=== PATIENT | female | born 1940 | race Caucasian/White ===

== ENCOUNTER 2018-04-02 06:33 | Day surgery (SDC) | payer MEDICARE, BC ==
--- NOTE | 2018-04-02 06:30 | History and Physical - Ferro ---
CHIEF COMPLAINT/HISTORY OF CHIEF COMPLAINT: This patient with a history of moderately severe thoracolumbar rotoscoliosis and an intractable radiculopathy had a spinal cord stimulator trial conducted on 02/17/18 with 75-80% pain control. Due to the failure of all therapy and the success of the trial she presents today for implantation of a permanent system. PAST MEDICAL HISTORY: Hypertension. PAST SURGICAL HISTORY: List to be provided. MEDICATIONS ON ADMISSION: List to be provided. No blood thinners. ALLERGIES: PENICILLIN. FAMILY/PSYCHOSOCIAL HISTORY: Social history - Noncontributory. Family history - Cancer. SYSTEMS REVIEW: The patient is appropriate in no acute distress. The remainder of the systems review is positive for glasses, blood pressure problems , and degenerative arthritis. PHYSICAL EXAMINATION: Height is 5'6", weight is 150. No vital signs. HEENT: Within normal limits. LUNGS: Clear. HEART: Regular rate and rhythm. ABDOMEN: Nontender. MUSCULOSKELETAL: Examination of the musculoskeletal system shows diffuse tenderness lumbar spine. Range of motion produces pain. Throughout the obvious deformity of a scoliosis curvature both kyphotic and scoliotic there is pain across the low back and into both legs somewhat more left than right. Ambulation - No assistive device utilized. NEUROLOGIC: Cranial nerves are intact. IMPRESSION: MODERATELY SEVERE THORACOLUMBAR SCOLIOSIS, ICD-10 CODE M41.25 WITH LUMBAR RADICULOPATHY ICD-10 CODE M54.16 AND M54.17. PLAN: The patient is here for implantation of a permanent spinal cord stimulator after successful trial and the failure of all therapy. All information provided through the fiberglass pipe covering supervisor by way of a CD-ROM, written information, and direct clinical tech interaction has been provided outlining any risks, side effects and complications. We will consider today's procedure outpatient although an overnight stay will be evaluated. JOB NUMBER: [id number] [facility]
[~2018-04-02 06:33] MED LIST: ACETAMINOPHEN 1,000 MG/100 ML BTL IV ONE; CLINDAMYCIN 600MG/50ML PREMIX 600 MG/50 ML BAG IVPB ONE; FAMOTIDINE 20MG TABLET PO ONE; MECLIZINE 25 MG TABLET PO ONE; METOCLOPRAMIDE 10 MG TABLET PO ONE
[2018-04-02] MEDS ORDERED: LIDOCAINE 2% MDV (20MG/ML) 20ML VIAL IV ONE (06:34)
[2018-04-02] MEDS ORDERED: BUPIVACAINE 0.5% W/EPI MPF 30 ML VIAL IVP ONE (06:34)
[2018-04-02] MEDS ORDERED: PROPOFOL 10 MG/ML VIAL IV ONE (06:34)
[2018-04-02] MEDS ORDERED: LIDOCAINE 1% W/EPI 1:200,000 MPF 30ML SQ ONE (06:34)
[2018-04-02] MEDS ORDERED: CLINDAMYCIN (PEDIATRIC DOSING) 150 MG/ML VIAL IVPB ONE (06:34)
[2018-04-02] MEDS ORDERED: MIDAZOLAM HCL 2MG/2ML VIAL IV ONE (06:34)
[2018-04-02] MEDS ORDERED: FENTANYL PF 100MCG/2ML VIAL IV ONE (06:34)
[2018-04-02] MEDS ORDERED: METOCLOPRAMIDE HCL 10 MG/2 ML VIAL IVP PRN (11:40)
[2018-04-02] MEDS ORDERED: OXYCODONE/APAP 10MG-325MG TABLET PO PRN ×2 (11:40)
[2018-04-02] MEDS ORDERED: HYDROCODONE/APAP 7.5/325MG TABLET PO PRN (11:40)
[2018-04-02] MEDS ORDERED: HYDROMORPHONE HCL 2 MG/ML VIAL IM PRN ×2 (11:40)
[2018-04-02] MEDS ORDERED: TEMAZEPAM 15 MG CAPSULE PO PRN ×2 (11:40)
[2018-04-02] MEDS ORDERED: ACETAMINOPHEN 325 MG TAB PO PRN ×2 (11:40)
[2018-04-02] MEDS ORDERED: DIPHENHYDRAMINE HCL 50 MG/ML VIAL IVP PRN ×2 (11:40)
[2018-04-02] MEDS ORDERED: SENNOSIDES/DOCUSATE SODIUM UD CAPSULE PO PRN ×2 (11:40)
[2018-04-02] MEDS ORDERED: DIPHENHYDRAMINE HCL 25 MG CAPSULE PO PRN ×2 (11:40)
[2018-04-02] MEDS ORDERED: METOCLOPRAMIDE 10 MG TABLET PO PRN (11:40)
[2018-04-02] MEDS ORDERED: AL HYDROX/MAG HYDROX 30ML UD PO PRN (11:40)
[2018-04-02] MEDS: HYDROCODONE/APAP 7.5/325MG TABLET PO PRN (13:32)
--- NOTE | 2018-04-02 15:53 | Operative Note - Ferro ---
DATE OF SURGERY: 04/02/18 PREOPERATIVE DIAGNOSES: MODERATELY SEVERE THORACOLUMBAR ROTOSCOLIOSIS, ICD-10 CODE= M41.25 WITH LUMBAR RADICULOPATHY, ICD-10 CODE = M54.16 AND M54.17. OPERATION: 1. FLUOROSCOPICALLY-GUIDED LEFT EPIDURAL ACCESS T11-12, CURVED EPIMED NEEDLE [id number]. PLACEMENT OF SPINAL CORD STIMULATOR LEAD 1, A [employer] IN[employer] 16 WITH 6 ELECTRODES POSITIONED LEFT, T6. 2. FLUOROSCOPICALLY-GUIDED EPIDURAL ACCESS LEFT T12-L1, PLACEMENT OF SPINAL CORD STIMULATOR LEAD 2, A [employer] 16 WITH 6 ELECTRODES POSITIONED RIGHT, T6. 3. COMPLEX PROGRAMMING OF LEAD 1 OVER 20 MINUTES FOLLOWED BY COMPLEX PROGRAMMING OF LEAD 2 OVER 20 MINUTES. 4. INCISION, SUBCUTANEOUS DISSECTION, AND ANCHORING OF LEAD 1 AND LEAD 2 TO SUPRASPINOUS FASCIA USING A [employer] LOCKING ANCHOR. 5. INCISION, SUBCUTANEOUS DISSECTION, AND FORMATION OF SUBCUTANEOUS POUCH AT RIGHT POSTERIOR GLUTEAL MARGIN FOR PLACEMENT OF GENERATOR IDENTIFIED A [employer] WAVEWRITER PROGRAMMABLE RECHARGEABLE. 6. TUNNELING BETWEEN POUCHES. PLACEMENT OF EXTERNAL PORTION OF LEAD 1 AND LEAD 2 INTO GENERATOR POUCH, EACH LEAD INTERFACED TO GENERATOR. 7. PLACEMENT OF GENERATOR POUCH SECURING TO POSTERIOR FASCIA WITH NONABSORBABLE SUTURE, PLACEMENT OF LEADS INTO POUCH. CLOSURE OF BOTH INCISIONS USING STRATAFIX SUTURE, 2-0 FASCIA, 3-0 SUBCUTICULAR. DERMABOND CLOSURE. 8. COMPLEX PROGRAMMING INTERNAL GENERATOR, HOME USE, TWO STIMULATORS, RECOVERY ROOM 20 MINUTES. SURGEON: ALONSO BETANCOURT D.O. ANESTHESIA: LOCAL SEDATION. ANESTHESIA PROVIDER: EDILMA STANTON CRNA. INDICATION: This patient with a history of intractable lumbar radiculopathy. Due to the failure of all therapy and the success of the stimulator trial, she is here for implantation of a permanent system. PROCEDURE: Intravenous line, vital sign monitoring, IV sedation, prepped and draped sterile technique. Under imaging, the C-Arm was rotated to account and adjust for the scoliosis and rotation. The epidural space at T11-12, 12-1 were marked on the left, skin infiltrated then using two separate curved access Epimed needles with [id number], the space was accessed. At 11-12, spinal cord stimulator lead 1, a [employer] Infinion 16 with 6 electrodes positioned left at T6. The epidural access at 12-1, spinal cord stimulator lead 2, also a [employer] Infinion 16 with 6 electrodes, positioned right at T6. Complex programming of lead 1 over 20 minute followed by complex programming of lead 2 over 20 minutes resulting in complete patterns of stimulation across the back and into the legs; patient indicating we were in all of the areas of the pain. She was given the option to implant the system, continue to program, or remove; she opted to implant. Questions were repeated with the same response. She was resedated. The skin above and below both needles were infiltrated, incision made, and subcutaneous dissection was conducted to the supraspinous fascia. Each lead was then anchored to the supraspinous fascia with a [employer] [place]. At the right posterior gluteal margin; a site picked by the patient for the generator, skin infiltrated, incision made, and subcutaneous dissection was conducted to form a pouch of suitable size and depth for the generator identified, [employer] WaveWriter Programmable Rechargeable. A tunneling tool was used to carry the leads into the generator pouch then each lead was interfaced to the generator. Antibiotic irrigation. Bovie for hemostasis. The generator was then placed in the pouch, secured to the posterior fascia. The leads were placed into the pouch and then both incisions were closed using STRATAFIX suture, 2-0 for fascia, 3-0 for skin. A Dermabond closure was then used to approximate the edges of both wounds. She was transported to the Recovery Room stable. No side- effects from the procedure or the sedation. When fully awake and alert, complex programming of the generator performed over 20 minutes re-establishing stimulation and pain control to all of the appropriate areas. She was instructed on the use of the system, provided with information, error messaging , and then prepared for discharge. She will stay overnight for observation and then discharged in the morning. DISCHARGE INSTRUCTIONS: 1. Sites remain clean and dry. No showering or bathing in any way that would disrupt dressings. If it happens, contact the clinic. 2. Standard medications resumed, including Levaquin, the antibiotic, 500 mg once a day for 14 days. 3. The office will contact the patient in the next 24-48 hours to set up a time in 7-10 days for us to check the sites. Until then, her activities should stay low. All other instructions provided, numbers to contact, problems given, she will be seen in 7-10 days. cc: Dr. Rene Julio JOB NUMBER: [id number] MTDD
[2018-04-02] MEDS ORDERED: GABAPENTIN 300 MG CAPSULE PO SCH (16:00)
[2018-04-02] MEDS: RINGERS SOLUTION,LACTATED 1,000 ML IV SCH ×2 (16:43→19:40)
[2018-04-02] MEDS: CLINDAMYCIN 600MG/50ML PREMIX 600 MG/50 ML BAG IVPB SCH (16:43)
[2018-04-02] MEDS: GABAPENTIN 300 MG CAPSULE PO SCH (21:16)
[2018-04-02] MEDS: BACLOFEN 10 MG TABLET PO SCH (21:17)
[2018-04-02] MEDS ORDERED: ATORVASTATIN 20 MG TABLET PO SCH (22:00)
[2018-04-03] MEDS: CLINDAMYCIN 600MG/50ML PREMIX 600 MG/50 ML BAG IVPB SCH (00:50)
[2018-04-03] MEDS: RINGERS SOLUTION,LACTATED 1,000 ML IV SCH (03:25)
[2018-04-03] MEDS ORDERED: LORAZEPAM 0.5 MG TABLET PO PRN (05:00)
[2018-04-03] MEDS: GABAPENTIN 300 MG CAPSULE PO SCH (09:54)
[2018-04-03] MEDS: BACLOFEN 10 MG TABLET PO SCH (11:50)
[2018-04-03] MEDS: HYDROCODONE/APAP 7.5/325MG TABLET PO PRN (12:15)
--- NOTE | 2018-04-04 08:25 | RADIOLOGY REPORT ---
EXAM: LUMBAR SPINE HISTORY: STIMULATOR PLACEMENT. TECHNIQUE: A single AP view of the lumbar sine was performed. FINDINGS: Lead stimulator tips are at the T7 level. Severe scoliotic curvature is present. IMPRESSION: STIMULATOR TIPS ARE AT THE T7 LEVEL. JOB NUMBER: [id number] MTDD
== END 2018-04-03 14:33 | disposition home or self-care (01) ==
LOC: SUR 06:33 → MEDSURG 11:23 → SUR 04-03 14:33
PROVIDERS: ATTEND Pain Medicine Interventional Pain Medicine
DX: M41.25 Other idiopathic scoliosis, thoracolumbar region (principal); M54.16 Radiculopathy, lumbar region; M54.17 Radiculopathy, lumbosacral region; I10 Essential (primary) hypertension; E78.00 Pure hypercholesterolemia, unspecified
CPT/HCPCS: 72020; 95972; C1820; C1883; J7120